=== PATIENT | female | born 1990 ===

== ENCOUNTER 2020-12-30 16:41 | Emergency (ER) | payer OTHER ==
[2020-12-30 16:48] VITALS: RESP 18; TEMP 97.7
[2020-12-30] MEDS ORDERED: KETOROLAC 15 MG/ML 1 ML VIAL IVP STA (16:53)
[2020-12-30] MEDS ORDERED: KETOROLAC 15 MG/ML 1 ML VIAL IM STA (16:57)
--- NOTE | 2020-12-30 17:00 | ED ---
General Adult HPI - General Chief complaint: Extremity Injury, Lower Stated complaint: fall/ankle injury Time Seen by Provider: 12/30/20 16:50 Source: patient, RN notes reviewed, old records reviewed Mode of arrival: wheelchair Limitations: no limitations - History of Present Illness Initial comments: [age]-year-old female presenting for evaluation of left ankle pain status post fall. Patient slipped on the ice, injuring her left foot and ankle. She has pain and swelling on the lateral aspect of the ankle. She denies any other injury, no head neck or back trauma. Pain is isolated to the ankle. No anticoagulation. Patient denies . - Related Data Previous Rx's Medication Instructions Recorded Ibuprofen [Motrin] 600 mg PO Q8HR PRN #24 tab 12/30/20 Allergies Allergy/AdvReac Type Severity Reaction Status Date / Time No Known Allergies Allergy Verified 12/30/20 16:47 Review of Systems ROS Statement: Those systems with pertinent positive or pertinent negative responses have been documented in the HPI. ROS Other: All systems not noted in ROS Statement are negative. Past Medical History Past Medical History: No Reported History History of Any Multi-Drug Resistant Organisms: None Reported Past Surgical History: Section Past Psychological History: No Psychological Hx Reported Smoking Status: Current every day smoker Past Alcohol Use History: None Reported Past Drug Use History: None Reported General Exam Limitations: no limitations General appearance: alert, in no apparent distress Head exam: Present: atraumatic, normocephalic Eye exam: Present: normal appearance, PERRL ENT exam: Present: normal exam Neck exam: Present: normal inspection. Absent: tenderness, meningismus Respiratory exam: Present: normal lung sounds bilaterally. Absent: respiratory distress, wheezes Cardiovascular Exam: Present: regular rate, normal rhythm GI/Abdominal exam: Present: soft. Absent: distended, tenderness, guarding Extremities exam: Present: joint swelling, other (Significant soft tissue swelling on the lateral malleolus, left ankle, distal pulses intact, normal cap refill, normal sensation) Back exam: Present: normal inspection Neurological exam: Present: alert, oriented X3, CN II-XII intact Psychiatric exam: Present: normal affect, normal mood Skin exam: Present: warm, dry, intact. Absent: cyanosis, diaphoretic Course Vital Signs 12/30/20 16:45 Temperature 97.7 F Pulse Rate 85 Respiratory 18 Rate Blood Pressure 116/77 O2 Sat by Pulse 99 Oximetry Medical Decision Making - Medical Decision Making X-ray performed of the left ankle, negative for fracture or dislocation, shows soft tissue swelling which is seen on exam. Patient is placed in an [place] wrap. She will ice and elevate the extremity, take Motrin for pain. She will follow- up with her primary care physician and she is given orthopedic follow-up as needed. Disposition Clinical Impression: Sprain and strain of ankle Disposition: HOME SELF-CARE Condition: Good Instructions (If sedation given, give patient instructions): Ankle Sprain (ED) Prescriptions: Ibuprofen [Motrin] 600 mg PO Q8HR PRN #24 tab PRN Reason: Pain Is patient prescribed a controlled substance at d/c from ED?: No Referrals: None,Stated [Primary Care Provider] - 1-2 days Robert Douglas MD [STAFF PHYSICIAN] - 1-2 days Time of Disposition: 17:56
--- NOTE | 2020-12-30 17:50 | XR ---
EXAMINATION TYPE: XR ankle complete LT DATE OF EXAM: 12/30/2020 CLINICAL HISTORY: Pain and swelling status post fall. TECHNIQUE: Frontal, lateral and oblique images of the left ankle are obtained. COMPARISON: None. FINDINGS: There is no acute fracture/dislocation evident in the left ankle. The ankle mortise appea rs within normal limits. There is soft tissue edema overlying the lateral malleolus. IMPRESSION: Soft tissue edema overlying the lateral malleolus without acute fracture seen. Scanning
[2020-12-30 18:11] VITALS: BP 116/70; PULSE 66
== END 2020-12-30 18:11 | disposition home or self-care (01) ==
LOC: EC 16:41
DX: S96.912A Strain of unspecified muscle and tendon at ankle and foot level, left foot, initial encounter (principal); F17.200 Nicotine dependence, unspecified, uncomplicated; W00.0XXA Fall on same level due to ice and snow, initial encounter; Y92.009 Unspecified place in unspecified non-institutional (private) residence as the place of occurrence of the external cause
CPT/HCPCS: 73610; 99284; 96372; J1885

== ENCOUNTER 2021-05-30 10:11 | Emergency (ER) | payer OTHER ==
[2021-05-30 10:18] VITALS: TEMP 97.8
[2021-05-30] MEDS ORDERED: KETOROLAC 15 MG/ML 1 ML VIAL IVP STA (10:39)
[2021-05-30] MEDS ORDERED: PANTOPRAZOLE 40 MG/10 ML VIAL IVP STA (10:39)
[2021-05-30] MEDS ORDERED: SODIUM CHLORIDE 0.9% 1,000 ML IV STA (10:39)
[2021-05-30] MEDS ORDERED: ONDANSETRON 4 MG/2 ML VIAL IVP STA (10:39)
--- NOTE | 2021-05-30 10:50 | ED ---
Abdominal Pain HPI - General Chief Complaint: Abdominal Pain Stated Complaint: Abd pain Time Seen by Provider: 05/30/21 10:19 Source: patient Mode of arrival: ambulatory Limitations: no limitations - History of Present Illness Initial Comments: Patient is a 30-year-old female presenting to the emergency Department with complaints of abdominal pain with nausea and vomiting since yesterday. She describes the pain as an epigastric area and very severe in nature. She currently rates it a 6/10. It has come down slightly from yesterday. She said many episodes of nausea and vomiting. She admits to prior history of 3 C- sections, no other abdominal surgeries. She denies being secondary to tubal ligation. She denies any chest pain or shortness of breath, no recent fevers, no dysuria. She has no further complaints at this time. Her vitals are stable upon arrival. - Related Data Home Medications Medication Instructions Recorded Confirmed No Known Home Medications 05/30/21 05/30/21 Allergies Allergy/AdvReac Type Severity Reaction Status Date / Time No Known Allergies Allergy Verified 05/30/21 12:48 Review of Systems ROS Statement: Those systems with pertinent positive or pertinent negative responses have been documented in the HPI. ROS Other: All systems not noted in ROS Statement are negative. Past Medical History Past Medical History: No Reported History History of Any Multi-Drug Resistant Organisms: None Reported Past Surgical History: Section Past Psychological History: No Psychological Hx Reported Smoking Status: Current every day smoker Past Alcohol Use History: None Reported Past Drug Use History: None Reported General Exam - General Exam Comments Initial Comments: GENERAL: Patient is well-developed and well-nourished. Patient is nontoxic and in no acute distress. HEAD: Atraumatic, normocephalic. EYES: Pupils equal round and reactive to light, extraocular movements intact, sclera anicteric, conjunctiva are normal. Eyelids were unremarkable. ENT: Moist mucous membranes. NECK: Normal range of motion, supple without lymphadenopathy or JVD. LUNGS: Unlabored respirations. Breath sounds clear to auscultation bilaterally and equal. No wheezes rales or rhonchi. HEART: Regular rate and rhythm without murmurs, rubs or gallops. ABDOMEN: Soft, tender to palpation of the right upper quadrant, epigastric area, normo active bowel sounds. No guarding, no rebound. No masses appreciated. : Deferred MUSCULOSKELETAL: Normal extremities with adequate strength and normal range of motion, no pitting or edema. No clubbing or cyanosis. NEUROLOGICAL: Patient is alert and oriented x 3. SKIN: Warm, Dry, normal turgor, no rashes or lesions noted. Limitations: no limitations Course Vital Signs 05/30/21 05/30/21 10:15 11:23 Temperature 97.8 F Pulse Rate 74 65 Respiratory 16 20 Rate Blood Pressure 148/73 120/68 O2 Sat by Pulse 97 97 Oximetry Medical Decision Making - Medical Decision Making Patient is a 30-year-old female here with right upper quadrant, epigastric pain and nausea and vomiting since yesterday. Her vitals are stable, no fevers. Prior history of 3 C-sections, no other abdominal surgeries. Agents labs are stable, normal white count, bili and liver enzymes are within normal limits as well. Lipase is 141. Ultrasound of the gallbladder shows shadowing calculus in the gallbladder fundus with trace pericholecystic fluid near the fundus. Positive Douglas's sign. Patient was given fluids, pain control and Zofran, she is resting completely still having discomfort. I discussed the case with Dr. Harris who is agreeable for admission for acute cholecystitis. Patient was agreeable with this plan of care however about 15 minutes later, she stated that she has no sitter for her kids and wishes to go home. I discussed with her the complications or coryza acute cholecystitis, she is aware of these complications and is willing to take the risk. Patient will follow up with Dr. Harris as an outpatient. Strict return parameters were discussed with the patient and she verbalized understanding. Case discussed with Dr. Madden. - Lab Data Result diagrams: 05/30/21 Unknown 05/30/21 Unknown Lab Results 05/30/21 05/30/21 05/30/21 Range/Units Unknown Unknown Unknown WBC 8.6 (3.8-10.6) k/uL RBC 4.77 (3.80-5.40) m/uL Hgb 11.9 (11.4-16.0) gm/dL Hct 36.1 (34.0-46.0) % MCV 75.7 L (80.0-100.0) fL MCH 25.0 (25.0-35.0) pg MCHC 33.0 (31.0-37.0) g/dL RDW 16.7 H (11.5-15.5) % Plt Count 247 (150-450) k/uL MPV 8.4 Neutrophils % 67 % Lymphocytes % 23 % Monocytes % 5 % Eosinophils % 4 % Basophils % 0 % Neutrophils # 5.8 (1.3-7.7) k/uL Lymphocytes # 2.0 (1.0-4.8) k/uL Monocytes # 0.4 (0-1.0) k/uL Eosinophils # 0.3 (0-0.7) k/uL Basophils # 0.0 (0-0.2) k/uL Anisocytosis Slight Microcytosis Slight Sodium 139 (137-145) mmol/L Potassium 4.3 (3.5-5.1) mmol/L Chloride 106 (98-107) mmol/L Carbon Dioxide 23 (22-30) mmol/L Anion Gap 10 mmol/L BUN 13 (7-17) mg/dL Creatinine 0.56 (0.52-1.04) mg/dL Est GFR (CKD-EPI)AfAm >90 (>60 ml/min/1.73 sqM) Est GFR (CKD-EPI)NonAf >90 (>60 ml/min/1.73 sqM) Glucose 97 (74-99) mg/dL Plasma Lactic Acid [place] 0.8 (0.7-2.0) mmol/L Calcium 9.6 (8.4-10.2) mg/dL Total Bilirubin 0.2 (0.2-1.3) mg/dL AST 26 (14-36) U/L ALT 20 (4-34) U/L Alkaline Phosphatase 60 (38-126) U/L Total Protein 7.6 (6.3-8.2) g/dL Albumin 4.5 (3.5-5.0) g/dL Amylase 79 (30-110) U/L Lipase 141 (23-300) U/L Disposition Clinical Impression: Nausea & vomiting, Cholecystitis Disposition: HOME SELF-CARE Condition: Stable Instructions (If sedation given, give patient instructions): Cholecystitis (ED) Additional Instructions: Please return to the Emergency Department if symptoms worsen or any other concerns. Recommend Tylenol for discomfort, limit foods high in fat is acting aggravate the gallbladder further. May take Zofran for any nausea. Please follow-up with Dr. Harris in her office as discussed. Is patient prescribed a controlled substance at d/c from ED?: No Referrals: None,Stated [Primary Care Provider] - 1-2 days Lona Harris DO [Doctor of Osteopathic Medicine] - 1-2 days Time of Disposition: 13:48
[2021-05-30 10:55] LABS: Anisocytosis Slight; Basophils % (A) 0 %; Eosinophils # (A) 0.3 k/uL (0-0.7); Eosinophils % (A) 4 %; HCT 36.1 % (34.0-46.0); HGB 11.9 gm/dL (11.4-16.0); Lymphocytes % (A) 23 %; MCV 75.7 fL (80.0-100.0); Mean Platelet Volume 8.4; Microcytosis Slight; Monocytes # (A) 0.4 k/uL (0-1.0); Monocytes % (A) 5 %; Neutrophils # (A) 5.8 k/uL (1.3-7.7); Neutrophils % (A) 67 %; Platelet Count 247 k/uL (150-450); RBC 4.77 m/uL (3.80-5.40); RDW 16.7 % (11.5-15.5); WBC 8.6 k/uL (3.8-10.6)
[2021-05-30 11:04] LABS: ALT 20 U/L (4-34); AST 26 U/L (14-36); African American GFR (CKD) >90 (>60 ml/min/1.73 sqM); Albumin 4.5 g/dL (3.5-5.0); Alkaline Phosphatase 60 U/L (38-126); Amylase 79 U/L (30-110); Anion Gap 10 mmol/L; Blood Urea Nitrogen 13 mg/dL (7-17); Calcium 9.6 mg/dL (8.4-10.2); Carbon Dioxide 23 mmol/L (22-30); Chloride 106 mmol/L (98-107); Glucose 97 mg/dL (74-99); Lipase 141 U/L (23-300); Non-African American GFR(CKD) >90 (>60 ml/min/1.73 sqM); Potassium 4.3 mmol/L (3.5-5.1); Sodium 139 mmol/L (137-145); Total Bilirubin 0.2 mg/dL (0.2-1.3); Total Protein 7.6 g/dL (6.3-8.2)
[2021-05-30 11:24] VITALS: RESP 20
--- NOTE | 2021-05-30 12:53 | US ---
EXAMINATION TYPE: US gallbladder DATE OF EXAM: 05/30/2021 COMPARISON: NONE CLINICAL HISTORY: 30-year-old female. RUQ/epi pain, n/v. Pt states epigastric pain EXAM MEASUREMENTS: Liver Length: 16.7 cm Gallbladder Wall: 0.4 cm CBD: 0.4 cm Right Kidney: 11.4 x 3.7 x 4.5 cm Pancreas: wnl, tail obscured by overlying bowel gas Liver: Visualized portions appeared wnl Gallbladder: There is a shadowing calculus within the gallbladder fundus. Trace pericholecystic flui d in near the gallbladder fundus. The gallbladder wall appears to be normal in thickness. Evidence for sonographic Douglas's sign: Yes CBD: Normal in caliber. Right Kidney: wnl IMPRESSION: Cholelithiasis with trace pericholecystic fluid near the gallbladder fundus. No significant gallbladd er wall thickening. Douglas's sign reported negative. Findings could suggest acute cholecystitis in th e right clinical setting.
[2021-05-30] MEDS ORDERED: KETOROLAC 15 MG/ML 1 ML VIAL IVP PRN (13:12)
[2021-05-30] MEDS ORDERED: MORPHINE SULFATE 4 MG/ML SYRINGE IV PRN (13:12)
[2021-05-30] MEDS ORDERED: NALOXONE 0.4 MG/ML 1 ML VIAL IV PRN (13:12)
[2021-05-30] MEDS ORDERED: ONDANSETRON 4 MG/2 ML VIAL IVP PRN (13:12)
[2021-05-30] MEDS ORDERED: SODIUM CHLORIDE 0.9% 1,000 ML IV SCH (13:15)
[2021-05-30] MEDS ORDERED: PIPERACILLIN-TAZOBACTAM 3.375 GM in SODIUM CHLORIDE 0.9% 100 ML IVPB STA (13:15)
[2021-05-30] MEDS ORDERED: traMADol 50 MG STARTER PACK 3 TAB BTL PO STA (13:48)
[2021-05-30] MEDS ORDERED: ONDANSETRON 4 MG ODT STARTER PACK 2 TAB BTL PO STA (13:48)
[2021-05-30 14:08] VITALS: BP 111/78; PULSE 80
== END 2021-05-30 14:12 | disposition home or self-care (01) ==
LOC: EC 10:11
DX: K81.9 Cholecystitis, unspecified (principal); F17.200 Nicotine dependence, unspecified, uncomplicated
CPT/HCPCS: 99284; 36415; 80053; 82150; 83605; 83690; 85025; 76705; 96361; 96374; 96375; J2405; J1885; S0119; C9113

== ENCOUNTER 2024-07-28 18:57 | Emergency (ER) | payer OTHER ==
[2024-07-28 19:45] VITALS: RESP 18
[2024-07-28 19:46] LABS: Appearance,Urine Clear (Clear); Bilirubin,Urine Negative (Negative); Blood,Urine Negative (Negative); Color,Urine Colorless; Glucose,Urine (UA) Negative (Negative); Ketones,Urine Negative (Negative); Leukocyte Esterase,Urine Negative (Negative); Nitrite,Urine Negative (Negative); PH, Urine 6.5 (5.0-8.0); Protein,Urine Negative (Negative); Urobilinogen,Urine <2.0 mg/dL (<2.0)
[2024-07-28] MEDS: SODIUM CHLORIDE 0.9% 1,000 ML IV STA (19:49)
[2024-07-28 20:04] LABS: Basophils % (A) 0 %; Eosinophils # (A) 0.3 k/uL (0-0.7); Eosinophils % (A) 3 %; HCT 34.3 % (34.0-46.0); HGB 11.1 gm/dL (11.4-16.0); Lymphocytes # (A) 1.9 k/uL (1.0-4.8); Lymphocytes % (A) 21 %; MCH 26.6 pg (25.0-35.0); MCHC 32.5 g/dL (31.0-37.0); MCV 81.8 fL (80.0-100.0); Mean Platelet Volume 7.8; Monocytes # (A) 0.4 k/uL (0-1.0); Monocytes % (A) 5 %; Neutrophils # (A) 6.5 k/uL (1.3-7.7); Neutrophils % (A) 70 %; Platelet Count 271 k/uL (150-450); RBC 4.19 m/uL (3.80-5.40); RDW 15.7 % (11.5-15.5); WBC 9.3 k/uL (3.8-10.6)
--- NOTE | 2024-07-28 21:46 | ED ---
General Adult HPI - General Source: patient, EMS, RN notes reviewed, old records reviewed Mode of arrival: EMS Limitations: no limitations <Blair Ruiz - Last Filed: 07/28/24 22:27> - General Source: patient, EMS Mode of arrival: EMS Limitations: no limitations <Ailyn Gagnno - Last Filed: 07/29/24 01:19> - General Chief complaint: Recheck/Abnormal Lab/Rx Stated complaint: dizziness Time Seen by Provider: 07/28/24 21:32 - History of Present Illness Initial comments: 33-year-old female who presents emergency department reporting shaking and dizziness. She states she was washing dishes when she had sudden onset of a heated feeling that came over her body. She felt like she was going to pass out. She spoke to the nurse and told her that she had drank an energy drink. Patient states that she felt well earlier today. No recent illnesses. No medications. Denies history of cardiac or pulmonary disease. No concern for . No other alleviating, precipitating or modifying factors (Ailyn Gagnon) - Related Data Home Medications Medication Instructions Recorded Confirmed No Known Home Medications 05/30/21 05/30/21 Allergies Allergy/AdvReac Type Severity Reaction Status Date / Time No Known Allergies Allergy Verified 07/28/24 19:10 Review of Systems ROS Other: All systems not noted in ROS Statement are negative. <Blair Ruiz - Last Filed: 07/28/24 22:27> ROS Other: All systems not noted in ROS Statement are negative. <Ailyn Gagnon - Last Filed: 07/29/24 01:19> ROS Statement: Those systems with pertinent positive or pertinent negative responses have been documented in the HPI. Past Medical History Past Medical History: No Reported History History of Any Multi-Drug Resistant Organisms: None Reported Past Surgical History: Section Past Psychological History: No Psychological Hx Reported Smoking Status: Current every day smoker Past Alcohol Use History: Occasional Past Drug Use History: None Reported <Ailyn Gagnon - Last Filed: 07/29/24 01:19> General Exam Limitations: no limitations General appearance: alert, in no apparent distress Head exam: Present: atraumatic, normocephalic, normal inspection Eye exam: Present: normal appearance, PERRL, EOMI. Absent: scleral icterus, conjunctival injection, periorbital swelling ENT exam: Present: normal exam, mucous membranes moist Neck exam: Present: normal inspection. Absent: tenderness, meningismus, lymphadenopathy Respiratory exam: Present: normal lung sounds bilaterally. Absent: respiratory distress, wheezes, rales, rhonchi, stridor Cardiovascular Exam: Present: regular rate, normal rhythm, normal heart sounds. Absent: systolic murmur, diastolic murmur, rubs, gallop, clicks GI/Abdominal exam: Present: soft, normal bowel sounds. Absent: distended, tenderness, guarding, rebound, rigid Extremities exam: Present: normal inspection, full ROM, normal capillary refill. Absent: tenderness, pedal edema, joint swelling, calf tenderness Back exam: Present: normal inspection Neurological exam: Present: alert, oriented X3, CN II-XII intact Psychiatric exam: Present: normal affect, normal mood Skin exam: Present: warm, dry, intact, normal color. Absent: rash <Ailyn Gagnon - Last Filed: 07/29/24 01:19> Course Vital Signs 07/28/24 07/28/24 07/28/24 19:10 19:43 23:02 Temperature 98.3 F 98.3 F 97.9 F Pulse Rate 67 65 60 Respiratory 16 18 18 Rate Blood Pressure 148/87 115/71 123/79 O2 Sat by Pulse 97 96 100 Oximetry Medical Decision Making - Lab Data Result diagrams: 07/28/24 19:31 07/28/24 19:31 <Blair Ruiz - Last Filed: 07/28/24 22:27> - Lab Data Result diagrams: 07/28/24 19:31 07/28/24 22:18 <Ailyn Gagnon - Last Filed: 07/29/24 01:19> - Medical Decision Making Was pt. sent in by a medical professional or institution (, PA, PATCHER HELPER, urgent care, hospital, or fci...) When possible be specific @ -No Did you speak to anyone other than the patient for history (EMS, parent, family, police, friend...)? What history was obtained from this source @ -Spoke with EMS for history Did you review nursing and triage notes (agree or disagree)? Why? @ -I reviewed and agree with nursing and triage notes Were old charts reviewed (outside hosp., previous admission, EMS record, old EKG, old radiological studies, urgent care reports/EKG's, fci records)? Report findings @ -No old charts were reviewed Differential Diagnosis (chest pain, altered mental status, abdominal pain women, abdominal pain men, vaginal bleeding, weakness, fever, dyspnea, syncope, headache, dizziness, GI bleed, back pain, seizure, CVA, palpatations, mental health, musculoskeletal)? @ -Differential Dizziness: Benign paroxysmal positional Vertigo, Meniere's disease, otitis media, acoustic neuroma, vertebrobasilar insufficiency, cerebellar stroke, encephalitis, hypovol emic, arrhythmia, coronary artery syndrome, anemia, this is not meant to be an all-inclusive list EKG interpreted by me (3pts min.). @ -Yes and demonstrates sinus rhythm with a rate of 63. Parable 171. QRS 89. QTc of 420. No acute ST segment elevations or depressions X-rays interpreted by me (1pt min.). @ -None done CT interpreted by me (1pt min.). @ -None done U/S interpreted by me (1pt. min.). @ -None done What testing was considered but not performed or refused? (CT, X-rays, U/S, labs )? Why? @ -None What meds were considered but not given or refused? Why? @ -None Did you discuss the management of the patient with other professionals (professionals i.e. , PA, PATCHER HELPER, lab, RT, psych nurse, psychiatric social worker, teachers' assistant, teacher, staff mine warfare officer, complex case manager)? Give summary @ -Spoke with Dr. Ruiz who will take over care of the patient Was smoking cessation discussed for >3mins.? @ -No Was critical care preformed (if so, how long)? @ -No Were there social determinants of health that impacted care today? How? (Homelessness, low income, unemployed, alcoholism, drug addiction, pereyra sportation, low edu. Level, literacy, decrease access to med. care, fpc, rehab)? @ -No Was there de-escalation of care discussed even if they declined (Discuss DNR or withdrawal of care, Hospice)? DNR status @ -No What co-morbidities impacted this encounter? (DM, HTN, Smoking, COPD, CAD, Cancer, CVA, ARF, Chemo, Hep., AIDS, mental health diagnosis, sleep apnea, morbid obesity)? @ -None Was patient admitted / discharged? Hospital course, mention meds given and route, prescriptions, significant lab abnormalities, going to OR and other pertinent info. @ -Upon arrival patient seen and evaluated in room 30. Thorough history and physical exam was performed. Twelve-lead EKG was performed. Laboratory studies were conducted. Care will be signed out to Dr. Ruiz who will dispo the patient Undiagnosed new problem with uncertain prognosis? @ -No Drug Therapy requiring intensive monitoring for toxicity (Heparin, Nitro, Insulin, Cardizem)? @ -No Were any procedures done? @ -No Diagnosis/symptom? @ -Near syncope Acute, or Chronic, or Acute on Chronic? @ -Acute Uncomplicated (without systemic symptoms) or Complicated (systemic symptoms)? @ -Complicated Side effects of treatment? @ -No Exacerbation, Progression, or Severe Exacerbation? @ -No Poses a threat to life or bodily function? How? (Chest pain, [place], [place], pneumonia, PE, COPD, DKA, ARF, appy, cholecystitis, CVA, Diverticulitis, Homicidal, Suicidal, threat to staff... and all critical care pts) @ -No (Ailyn Gagnon) - Lab Data Lab Results 07/28/24 07/28/24 07/28/24 Range/Units 19:10 19:10 19:31 WBC 9.3 (3.8-10.6) k/uL RBC 4.19 (3.80-5.40) m/uL Hgb 11.1 L (11.4-16.0) gm/dL Hct 34.3 (34.0-46.0) % MCV 81.8 (80.0-100.0) fL MCH 26.6 (25.0-35.0) pg MCHC 32.5 (31.0-37.0) g/dL RDW 15.7 H (11.5-15.5) % Plt Count 271 (150-450) k/uL MPV 7.8 Neutrophils % 70 % Lymphocytes % 21 % Monocytes % 5 % Eosinophils % 3 % Basophils % 0 % Neutrophils # 6.5 (1.3-7.7) k/uL Lymphocytes # 1.9 (1.0-4.8) k/uL Monocytes # 0.4 (0-1.0) k/uL Eosinophils # 0.3 (0-0.7) k/uL Basophils # 0.0 (0-0.2) k/uL Sodium Potassium Chloride Carbon Dioxide Anion Gap BUN Creatinine Est GFR (CKD-EPI) Est GFR (CKD-EPI)AfAm Est GFR (CKD-EPI)NonAf Glucose Calcium Total Bilirubin AST ALT Alkaline Phosphatase Total Protein Albumin TSH (0.465-4.680) mIU/L Urine Color Colorless Urine Appearance Clear (Clear) Urine pH 6.5 (5.0-8.0) Ur Specific [place] 1.010 (1.001-1.035) Urine Protein Negative (Negative) Urine Glucose (UA) Negative (Negative) Urine Ketones Negative (Negative) Urine Blood Negative (Negative) Urine Nitrite Negative (Negative) Urine Bilirubin Negative (Negative) Urine Urobilinogen <2.0 (<2.0) mg/dL Ur Leukocyte Esterase Negative (Negative) Urine HCG, Qual Not Detected (Not Detectd) 07/28/24 07/28/24 Range/Units 19:31 22:18 WBC (3.8-10.6) k/uL RBC (3.80-5.40) m/uL Hgb (11.4-16.0) gm/dL Hct (34.0-46.0) % MCV (80.0-100.0) fL MCH (25.0-35.0) pg MCHC (31.0-37.0) g/dL RDW (11.5-15.5) % Plt Count (150-450) k/uL MPV Neutrophils % % Lymphocytes % % Monocytes % % Eosinophils % % Basophils % % Neutrophils # (1.3-7.7) k/uL Lymphocytes # (1.0-4.8) k/uL Monocytes # (0-1.0) k/uL Eosinophils # (0-0.7) k/uL Basophils # (0-0.2) k/uL Sodium Cancelled 137 Potassium Cancelled 4.1 Chloride Cancelled 113 H Carbon Dioxide Cancelled 21 L Anion Gap Cancelled 3 BUN Cancelled 10 Creatinine Cancelled 0.67 Est GFR (CKD-EPI) Cancelled Est GFR (CKD-EPI)AfAm Cancelled >90 Est GFR (CKD-EPI)NonAf Cancelled >90 Glucose Cancelled 89 Calcium Cancelled 8.5 Total Bilirubin Cancelled 0.5 AST Cancelled 29 ALT Cancelled 20 Alkaline Phosphatase Cancelled 47 Total Protein Cancelled 6.3 Albumin Cancelled 3.8 TSH 1.110 (0.465-4.680) mIU/L Urine Color Urine Appearance (Clear) Urine pH (5.0-8.0) Ur Specific [place] (1.001-1.035) Urine Protein (Negative) Urine Glucose (UA) (Negative) Urine Ketones (Negative) Urine Blood (Negative) Urine Nitrite (Negative) Urine Bilirubin (Negative) Urine Urobilinogen (<2.0) mg/dL Ur Leukocyte Esterase (Negative) Urine HCG, Qual (Not Detectd) Disposition Is patient prescribed a controlled substance at d/c from ED?: No Time of Disposition: 22:30 <Blair Ruiz - Last Filed: 07/28/24 22:27> <Ailyn Gagnon - Last Filed: 07/29/24 01:19> Clinical Impression: Dizziness Disposition: HOME SELF-CARE Condition: Good Instructions (If sedation given, give patient instructions): Dizziness (ED) Referrals: None,Stated [Primary Care Provider] - 1-2 days
[2024-07-28 22:53] LABS: ALT 20 U/L (4-34); African American GFR (CKD) >90 (>60 ml/min/1.73 sqM); Albumin 3.8 g/dL (3.5-5.0); Anion Gap 3 mmol/L; Blood Urea Nitrogen 10 mg/dL (7-17); Calcium 8.5 mg/dL (8.4-10.2); Carbon Dioxide 21 mmol/L (22-30); Chloride 113 mmol/L (98-107); Glucose 89 mg/dL (74-99); Non-African American GFR(CKD) >90 (>60 ml/min/1.73 sqM); Sodium 137 mmol/L (137-145); Total Bilirubin 0.5 mg/dL (0.2-1.3); Total Protein 6.3 g/dL (6.3-8.2)
[2024-07-28 22:54] LABS: AST 29 U/L (14-36); Alkaline Phosphatase 47 U/L (38-126); Potassium 4.1 mmol/L (3.5-5.1)
[2024-07-28 23:03] VITALS: BP 123/79; PULSE 60; TEMP 97.9
== END 2024-07-28 23:09 | disposition home or self-care (01) ==
LOC: EC 18:57
DX: R42 Dizziness and giddiness (principal)
CPT/HCPCS: 36415; 80053; 81003; 81025; 84443; 85025; 93005; 96360; 96361; 99283